=== PATIENT | female | born 1995 | race Hispanic/Latino ===

== ENCOUNTER 2023-07-31 13:02 | Emergency (ER) | payer BC, OTHER, SELFPAY ==
[2023-07-31 14:41] LABS: SARS-CoV-2 NAA Rapid Test Not Detected (NotDetected)
[2023-07-31] MEDS ORDERED: Ketorolac Tromethamine 30 MG (1 mL) VIAL ONE (15:22)
== END 2023-07-31 15:42 | disposition home or self-care (01) ==
LOC: CSHERS 13:02
DX: B34.9 Viral infection, unspecified (principal)
CPT/HCPCS: 96372; 99283; J1885